=== PATIENT | male | born 1970 | race Caucasian/White ===

== ENCOUNTER → 2019-12-20 | Outpatient (CLI) | payer BC ==
--- NOTE | 2019-12-20 10:53 | Diagnostic Imaging Report ---
INDICATION: Right foot pain. COMPARISON: None available. TECHNIQUE: Three radiographs of the right foot dated December 20, 2019. FINDINGS: No acute fracture or dislocation. No destructive osseous process. Mild degenerative changes are present, including the first and second MTP joints. The Lisfranc joint is well aligned. Mild degenerative changes at the proximal first and second metatarsals. Tiny plantar calcaneal enthesophyte. IMPRESSION: No acute osseous abnormality with mild degenerative changes. Dictated by: Dictated on workstation # [id number]
== END ==
LOC: RAD FS 09:44
PROVIDERS: ATTEND Nurse Practitioner
DX: M79.671 Pain in right foot (principal)
CPT/HCPCS: 73630